=== PATIENT | female | born 2000 | race Caucasian/White ===

== ENCOUNTER 2023-07-28 02:58 | Inpatient (IN) | payer OTHER ==
[~2023-07-28] VITALS: Ht 157.5 cm; Wt 52.6 kg
[2023-07-28 03:07] VITALS: BP_SYST 109; PULSE 77; RESP 22; TEMP 96.8; O2SAT 100
[2023-07-28] MEDS ORDERED: ONDANSETRON HCL 4 MG/2 ML VIAL IVP ONE ×2 (03:30→07:00)
[2023-07-28] MEDS ORDERED: MORPHINE 4 MG INJ. 4 MG/ML VIAL IVP ONE (03:30)
[2023-07-28] MEDS ORDERED: NACL 0.9% 1,000 ML IV ONE (03:30)
[2023-07-28 03:56] LABS: BILIRUBIN,URINE NEGATIVE (NEGATIVE); BLOOD, URINE NEGATIVE (NEGATIVE); CLARITY/URINE CLEAR (CLEAR); COLOR,URINE YELLOW (YELLOW); GLUCOSE,URINE NEGATIVE (NEGATIVE); KETONES,URINE 1+ (NEGATIVE); LEUKOCYTE ESTERASE ,URINE 2+ (NEGATIVE); NITRITE, URINE NEGATIVE (NEGATIVE); PROTEIN URINE NEGATIVE (NEGATIVE); UROBILINOGEN,URINE 0.2 (0.2-1.0)
[2023-07-28 04:03] LABS: BASOPHILS % (AUTO) 0.4 % (0.0-2.0); EOSINOPHILS # (AUTO) 0.1 K/uL (0.0-0.4); EOSINOPHILS % (AUTO) 1.4 % (0.0-4.0); HEMATOCRIT 40.7 % (36-48); HEMOGLOBIN 13.3 g/dL (12.0-16.0); LYMPHOCYTES # (AUTO) 2.2 K/uL (1.0-5.5); LYMPHOCYTES % (AUTO) 20.3 % (20.5-51.5); MEAN CORPUSCULAR HEMOGLOBIN 28 pg (27-31); MEAN CORPUSCULAR HGB CONC 33 % (32-36); MEAN CORPUSCULAR VOLUME 86 fL (79.0-98.0); MONOCYTES # (AUTO) 0.8 K/uL (0.0-1.0); MONOCYTES % (AUTO) 7.4 % (1.7-9.3); NEUTROPHILS # (AUTO) 7.7 K/uL (1.8-7.7); NEUTROPHILS % (AUTO) 70.5 % (40.0-70.0); PLATELET COUNT (AUTO) 252 K/uL (130-430); RED BLOOD CELL COUNT(AUTO) 4.71 MIL/uL (4.2-6.2); RED CELL DISTRIBUTION WIDTH 15.1 % (9.0-15.0); WHITE BLOOD COUNT (AUTO) 10.9 K/uL (4.8-10.8)
[2023-07-28 04:17] LABS: PROTHROMBIN TIME 10.8 SECS (9.5-12.5)
[2023-07-28 04:25] LABS: BACTERIA,URINE FEW /HPF (None Seen)
[2023-07-28 04:29] LABS: CALCIUM 9.3 mg/dL (8.4-11.0); CREATININE 0.83 mg/dL (0.55-1.30); POTASSIUM 3.1 mmol/L (3.5-5.1)
[2023-07-28 04:33] LABS: ALBUMIN 3.9 g/dL (3.4-4.8); TOTAL BILIRUBIN 0.4 mg/dL (0.0-1.0); TOTAL PROTEIN, SERUM 7.5 g/dL (6.4-8.3)
[2023-07-28] MEDS ORDERED: metroNIDAZOLE 500 mg/NS 100 ML IV ONE (07:15)
[2023-07-28] MEDS ORDERED: POTASSIUM CHLORIDE 20 MEQ/PKT PACKET PO ONE (07:15)
[2023-07-28] MEDS ORDERED: DIPHENHYDRAMINE INJ 50 MG/ML VIAL ONE (08:19)
[2023-07-28] MEDS ORDERED: DIPHENHYDRAMINE INJ 50 MG/ML VIAL IVP ONE (08:30)
[2023-07-28] MEDS ORDERED: MORPHINE 2 MG/ML INJ. SYRINGE ONE (08:32)
[2023-07-28] MEDS: NACL 0.9% 1,000 ML IV SCH ×2 (08:59→17:00)
[2023-07-28] MEDS ORDERED: MORPHINE 2 MG/ML INJ. SYRINGE IVP ONE ×2 (09:00→12:30)
[2023-07-28] MEDS ORDERED: BACL10TA PO (09:10)
[2023-07-28] MEDS ORDERED: DICL100G60 TP (09:10)
[2023-07-28] MEDS ORDERED: HYDR-3927 PO ×2 (09:10→09:20)
[2023-07-28] MEDS ORDERED: LIDO700A30 TP (09:10)
[2023-07-28] MEDS ORDERED: NORT25CA PO (09:10)
[2023-07-28] MEDS ORDERED: NAPR-690 PO (09:10)
[2023-07-28 10:46] VITALS: BP_SYST 94; PULSE 50; RESP 20; TEMP 99.1; O2SAT 100
[2023-07-28 11:30] VITALS: O2SAT 100
[2023-07-28 12:00] VITALS: BP_SYST 100; PULSE 55; RESP 18; TEMP 98.4; O2SAT 99
[2023-07-28] MEDS ORDERED: LIDOCAINE PATCH 5% 1 EA TP ONE (12:00)
[2023-07-28] MEDS ORDERED: HYDROcodone/ACETAMIN 5-325 MG TAB (NORCO/ VICODIN) PO PRN (12:00)
[2023-07-28] MEDS ORDERED: NALOXONE HCL 0.4 MG/ML AMP (NARCAN) IVP PRN (12:15)
[2023-07-28] MEDS ORDERED: BACLOFEN 10 MG TABLET PO SCH (15:00)
[2023-07-28] MEDS ORDERED: ONDANSETRON HCL 4 MG/2 ML VIAL IVP PRN (15:30)
[2023-07-28] MEDS ORDERED: LEVO750T64 PO ×2 (16:24)
[2023-07-28 17:50] VITALS: BP_SYST 94; PULSE 50; RESP 18; TEMP 98.2; O2SAT 100
[2023-07-28] MEDS ORDERED: ONDA-8 TL (17:59)
[2023-07-28 18:01] VITALS: BP_SYST 94; PULSE 50; RESP 18; TEMP 99.2; O2SAT 100
[2023-07-29] MEDS ORDERED: LIDOCAINE PATCH 5% 1 EA TP SCH (09:00)
== END 2023-07-28 19:10 | disposition home or self-care (01) | DRG 249 ==
LOC: SED 02:58 → STU 08:50
PROVIDERS: ADMIT Family Medicine; ATTEND Family Medicine
DX: K52.9 Noninfective gastroenteritis and colitis, unspecified (principal); E87.6 Hypokalemia; K21.9 Gastro-esophageal reflux disease without esophagitis; Z79.899 Other long term (current) drug therapy; Z88.8 Allergy status to other drugs, medicaments and biological substances; Z91.09 Other allergy status, other than to drugs and biological substances; Z79.891 Long term (current) use of opiate analgesic
CPT/HCPCS: 36415; 76376; 80053; 81000; 81001; 81015; 83605; 83690; 85025; 85610-TC; 85730-TC; 87040; 96361; 96374; 96375; 99285; G0378; J1200; J1956; J2270; J2405; J3490